=== PATIENT | male | born 1985 | race Caucasian/White ===

== ENCOUNTER 2021-02-07 03:16 | Emergency (ER) | payer OTHER ==
[~2021-02-07] VITALS: Ht 180.3 cm; Wt 73.0 kg
[2021-02-07] MEDS ORDERED: KETOROLAC 60MG/2ML VIAL IM STA (04:54)
[2021-02-07 05:07] VITALS: BP 135/85
[2021-02-07] MEDS ORDERED: IBUP-2029 PO (06:37)
== END 2021-02-07 06:54 ==
LOC: ER 03:16
DX: S00.83XA Contusion of other part of head, initial encounter (principal); W22.8XXA Striking against or struck by other objects, initial encounter; Y93.89 Activity, other specified; Y92.89 Other specified places as the place of occurrence of the external cause; Y99.8 Other external cause status; M54.2 Cervicalgia; M79.604 Pain in right leg; M54.50 Low back pain, unspecified
CPT/HCPCS: 72100; 73110; 73590; 96372; 99284; J1885; Z7610